=== PATIENT | male | born 1965 | race Two or more races ===

== ENCOUNTER → 2025-06-27 | Outpatient (CLI) | payer OTHER, SELFPAY ==
--- NOTE | 2025-06-27 08:59 | XR_ITS ---
Examination: Ultrasound soft tissue extremity TECHNIQUE: Grayscale sonographic images soft tissue extremity left arm Date and time: June 27, 2025 0923 hours INDICATIONS: Left arm injury 2 days ago. FINDINGS: Free fluid noted in the lower biceps region IMPRESSION: Free fluid noted in the lower biceps region which may represent hemorrhage Consider MRI shoulder upper arm follow-up to exclude biceps tear
== END | disposition home or self-care (01) ==
PROVIDERS: PCP Nurse Practitioner Family; Referring Provider Nurse Practitioner Family; Visit Provider Nurse Practitioner Family
DX: S49.92XA Unspecified injury of left shoulder and upper arm, initial encounter (principal); X58.XXXA Exposure to other specified factors, initial encounter
CPT/HCPCS: 76882

== ENCOUNTER → 2025-07-25 | Outpatient (CLI) | payer OTHER, SELFPAY ==
--- NOTE | 2025-07-25 16:45 | XR_ITS ---
Examination: MRI left elbow, without contrast Date and time of exam: July 25, 2025, 1726 hrs. Indications: Injury to the elbow June 26, 2025, lifting injury with pain Technique: Multiple axial sagittal and coronal images of the left elbow have been obtained with the Siemens high-resolution 1.5 [employer] MRI scanner. Images obtained include T2-weighted fat-suppressed sagittal sections, TR 3500, TE 46, T2 weighted coronal fat suppressed images, TR 3050, TE 84, T2-weighted transverse fat suppressed images, TR 3260, TE 63, proton density transverse images, TR 4720 TE 46, and T1 weighted coronal images, TR 560, TE 13. Findings: Thickened retracted biceps tendon with surrounding hemorrhage There is complete tear of the insertion of the long head of the biceps into the radial tuberosity No occult fracture. Mild elbow effusion. Increased signal in the triceps insertion, strain The coronal images are degraded by patient motion No ossified joint bodies No fracture Common extensor tendon is intact There appears to be moderate strain of the common flexor tendon Impression: Complete tear of the long head of the biceps tendon, no longer inserted into the radial tuberosity but retracted in the mid arm Moderate strain of the common flexor tendon
== END | disposition home or self-care (01) ==
LOC: SMRI 16:40
PROVIDERS: PCP Nurse Practitioner Family; Referring Provider Nurse Practitioner Family; Visit Provider Nurse Practitioner Family
DX: S46.112A Strain of muscle, fascia and tendon of long head of biceps, left arm, initial encounter (principal); S56.212A Strain of other flexor muscle, fascia and tendon at forearm level, left arm, initial encounter; X58.XXXA Exposure to other specified factors, initial encounter
CPT/HCPCS: 73221